=== PATIENT | female | born 1985 | race Caucasian/White ===

== ENCOUNTER 2017-02-07 14:32 | Outpatient (CLI) | payer BC ==
[~2017-02-07] VITALS: Ht 175.3 cm; Wt 91.1 kg
[~2017-02-07 14:32] MED LIST: BCP; MULTIVITAMIN; PROBIOTIC1 EACH PO; RELAFEN500 M1 PO; ZYRTEC10 M3 PO
[2017-02-07 14:46] VITALS: BP 131/74
[2017-02-07] MEDS ORDERED: PRENATAL TABLE1 EAC3 PO (15:02)
== END 2017-02-07 16:10 | disposition home or self-care (01) ==
LOC: LDRP-OP 14:32 → 2WEST 14:34 → LDRP-OP 03-13 10:41
DX: O36.8130 Decreased fetal movements, third trimester, not applicable or unspecified (principal); Z3A.00 Weeks of gestation of pregnancy not specified
CPT/HCPCS: 59025; G0378

== ENCOUNTER 2017-02-13 11:33 | Outpatient (CLI) | payer BC ==
[~2017-02-13 11:33] MED LIST changes: +PRENATAL TABLE1 EAC3 PO
[2017-02-13 11:52] VITALS: BP 121/76
== END 2017-02-13 12:50 | disposition home or self-care (01) ==
LOC: LDRP-OP 11:33 → 2WEST 11:34 → LDRP-OP 03-13 18:38
DX: Z03.71 Encounter for suspected problem with amniotic cavity and membrane ruled out (principal); Z3A.00 Weeks of gestation of pregnancy not specified
CPT/HCPCS: 59025; G0378

== ENCOUNTER 2017-02-14 22:26 | Inpatient (IN) | payer BC ==
[~2017-02-14] VITALS: Ht 177.8 cm; Wt 92.9 kg
[2017-02-14 22:37] VITALS: BP 134/74
[2017-02-14 23:14] VITALS: BP 112/76
[2017-02-15] VITALS (20 sets, daily range): BP systolic 96–130; BP diastolic 52–84
[2017-02-15 02:12] LABS: EOSINOPHIL (%) 0.4 % (0-5); EOSINOPHIL COUNT 0.1 K/uL (0-0.3); HEMATOCRIT 40.6 % (36.0-46.0); IMMATURE GRANULOCYTE (%) 0.5 % (0.0-0.7); IMMATURE GRANULOCYTE COUNT 0.1 K/uL; INSTRUMENT ABS NEUTROPHIL CT 12.2 K/uL; LYMPHOCYTE COUNT 1.6 K/uL (1.0-2.8); MCH 32.5 PG (29.0-34.0); MCV 95.5 FL (83-99); MEAN PLAT.VOLUME 10.4 uM^3 (9.5-12.4); MONOCYTE (%) 5.9 % (3-12); MONOCYTE COUNT 0.9 K/uL (0-0.8); NEUTROPHIL (%) 82.1 % (45-76); NEUTROPHIL COUNT 12.2 K/uL (1.8-6.4); PLATELET COUNT 212 K/uL (156-360); RBC DIS.WIDTH-SD 41.5 % (39-53); RED BLOOD COUNT 4.25 M/uL (3.80-5.20); WHITE BLOOD COUNT 14.9 K/uL (4.1-10.2)
[2017-02-15] MEDS ORDERED: MOTRIN800 MG PO (06:38)
[2017-02-16 07:35] VITALS: BP 106/65
[2017-02-16 15:36] VITALS: BP 113/65
[2017-02-16 23:03] VITALS: BP 116/59
[2017-02-17 07:36] VITALS: BP 111/58
[2017-02-17 15:53] VITALS: BP 112/61
== END 2017-02-17 17:30 | disposition home or self-care (01) | DRG 775 ==
LOC: LDRP-OP 22:26 → 2WEST 22:28 → LDRP-OP 06-06 13:27
PROVIDERS: Nurse Practitioner
PROC: 10E0XZZ Delivery of Products of Conception, External Approach (ICD-10-PCS; principal; 2017-02-15)
PROC: 0HQ9XZZ Repair Perineum Skin, External Approach (ICD-10-PCS; principal; 2017-02-15)
PROC: 10907ZC Drainage of Amniotic Fluid, Therapeutic from Products of Conception, Via Natural or Artificial Opening (ICD-10-PCS; principal; 2017-02-15)
PROC: 3E0R3CZ (ICD-10-PCS; principal; 2017-02-15)
PROC: 00HU33Z Insertion of Infusion Device into Spinal Canal, Percutaneous Approach (ICD-10-PCS; principal; 2017-02-15)
DX: O70.0 First degree perineal laceration during delivery (principal); O76 Abnormality in fetal heart rate and rhythm complicating labor and delivery; O77.0 Labor and delivery complicated by meconium in amniotic fluid; O69.81X0 Labor and delivery complicated by cord around neck, without compression, not applicable or unspecified; O99.824 Streptococcus B carrier state complicating childbirth; Z3A.40 40 weeks gestation of pregnancy; Z37.0 Single live birth
CPT/HCPCS: 59025; 85025; C1755; G0378; J3370; J7120

== ENCOUNTER 2017-03-09 09:03 | Emergency (ER) | payer BC ==
[~2017-03-09] VITALS: Ht 177.8 cm; Wt 84.8 kg
[~2017-03-09 09:03] MED LIST changes: +MOTRIN800 MG PO
[2017-03-09 10:19] LABS: EOSINOPHIL (%) 0.6 % (0-5); EOSINOPHIL COUNT 0.1 K/uL (0-0.3); HEMATOCRIT 34.6 % (36.0-46.0); IMMATURE GRANULOCYTE COUNT 0.2 K/uL; INSTRUMENT ABS NEUTROPHIL CT 15.9 K/uL; MCH 32.2 PG (29.0-34.0); MCHC 33.5 G/DL (30.0-36.0); MCV 96.1 FL (83-99); MONOCYTE (%) 12.7 % (3-12); MONOCYTE COUNT 2.5 K/uL (0-0.8); NEUTROPHIL (%) 80.7 % (45-76); NEUTROPHIL COUNT 15.9 K/uL (1.8-6.4); PLATELET COUNT 186 K/uL (156-360); RBC DIS.WIDTH-CV 11.9 % (11.8-14.6); RBC DIS.WIDTH-SD 42.6 % (39-53); WHITE BLOOD COUNT 19.7 K/uL (4.1-10.2)
[2017-03-09 10:20] LABS: CHLORIDE 107 mEq/L (99-109); POTASSIUM 3.2 mEq/L (3.7-5.4); SODIUM 141 mEq/L (136-147)
[2017-03-09 10:21] LABS: GLUCOSE 107 mg/dL (70-99)
[2017-03-09 10:23] LABS: ANION GAP 10 MEQ/L (2-14)
[2017-03-09 10:25] LABS: GFR ESTIMATE (CALCULATED) > 59 mL/min/
[2017-03-09 10:26] LABS: UREA NITROGEN (BUN) 8 mg/dL (9-23)
[2017-03-09 12:34] VITALS: BP 104/60
== END 2017-03-09 12:37 | disposition home or self-care (01) ==
LOC: EME 09:03
PROVIDERS: Emergency Medicine
DX: O91.23 Nonpurulent mastitis associated with lactation (principal); R00.0 Tachycardia, unspecified; Z88.1 Allergy status to other antibiotic agents
CPT/HCPCS: 80048; 85025; 99281; 99284; J7030

== ENCOUNTER 2017-11-09 02:10 | Emergency (ER) | payer BC ==
[~2017-11-09] VITALS: Ht 175.3 cm; Wt 74.0 kg
[2017-11-09] MEDS ORDERED: FLOXIN OTIC SOLN5 ML RIGHT EAR (03:53)
[2017-11-09 04:04] VITALS: BP 00/00
== END 2017-11-09 04:04 | disposition home or self-care (01) ==
LOC: EME 02:10
DX: H66.91 Otitis media, unspecified, right ear (principal); B34.9 Viral infection, unspecified; Z88.0 Allergy status to penicillin; Z88.1 Allergy status to other antibiotic agents; Z88.8 Allergy status to other drugs, medicaments and biological substances
CPT/HCPCS: 99281; 99283; J1100